=== PATIENT | female | born 1995 ===

== ENCOUNTER 2023-03-13 08:04 | Outpatient (AMB) | payer OTHER, SELFPAY ==
--- NOTE | 2023-03-13 08:10 | AM.OFFWIN_ITS ---
Intake Vital Signs 03/13/23 08:13 Height 5 ft 4 in Weight 165 lb BMI 28.3 BP 100/64 Blood Pressure Location Lt brachial Position Sitting Pulse 82 Pulse Source Pulse Oximeter Temp 98.2 F Temp Source Oral Pulse Oximetry (%) 99 Oxygen Delivery Method Room Air Intake Visit Reasons: [employer]/right eye irritation (lobby) Intake Note: Pt is here today c/o ? 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 Patient has developed a pinkeye on the right side. Mucoid discharge. Vision is normal. Does not wear contact lenses. She is been having a cold with symptoms of sinus congestion and postnasal drip for the week prior. Physical Exam Vital Signs: Last Vital Signs Temp 98.2 F 03/13/23 08:13 Pulse 82 03/13/23 08:13 BP 100/64 03/13/23 08:13 Pulse Ox 99 03/13/23 08:13 Oxygen Delivery Method Room Air 03/13/23 08:13 BMI result Body Mass Index 28.3 Const General: cooperative and healthy appearing Nutritional Appearance: well nourished Orientation/consciousness: patient oriented x3 Limitations: no limitations HEENT Other: Right eye: Bulbar conjunctiva is congested. Corneas clear. Anterior chambers clear. Head: Yes normal to inspection Eyes General: appearance normal, both eyes and all related structures Neck Neck: Yes normal visual inspection Chest Chest palpation & inspection: normal palpation of entire chest wall Resp Effort & Inspection: normal respiratory effort Neuro General: patient oriented x3 Assessment & Plan Assessment & Plan (1) Conjunctivitis: Code(s): H10.9 - Unspecified conjunctivitis Plan: Erythromycin ophthalmic ointment. Symptoms should improve soon.. If symptoms do not improve or get worse to follow-up here. Medications: New erythromycin 0.5 inches ophthalmic (eye) TID 1 g 0RF Coding Level of Care Code Est Pt Level 3 (63655) Diagnoses Conjunctivitis H10.9
[2023-03-13 08:13] VITALS: BP 100/64; PULSE 82; TEMP 36.8; O2SAT 99; BMI 28.3
== END 2023-03-13 08:56 | disposition home or self-care (01) ==
PROVIDERS: Visit Provider Internal Medicine
DX: H10.9 Unspecified conjunctivitis (principal)
CPT/HCPCS: 99213